=== PATIENT | female | born 1990 ===

== ENCOUNTER 2025-02-07 14:49 | Outpatient (REF) | payer MEDICAID, SELFPAY ==
--- OUTSIDE RECORDS SUMMARY | 2025-02-07 14:00 | XMS_ITS | Encounter Summary ---
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 Name Role Phone Unavailable Primary Care Provider Unavailabl e Reason for Visit * Reason Comments new patient Encounter Details Date Type Department Care Team ([facility] Contact Info) Description 02/07/2025 2:00 PM EST Office Visit [facility] [address] [place], [place] [phone] Sravanthi Quarles NP [address] [place] [address] Encounter to establish care with new provider (Primary Dx); Encounter for health-related screening; Screen for sexually transmitted diseases; Encounter for immunization Social History Tobacco Use Types Packs/Day Years Used Date Smoking Tobacco: Never Smokeless Tobacco: Never Tobacco Cessation:Counseling Given: Not Answered Alcohol Answer Date Recorded How often do you have a drink containing alcohol ? 0 02/07/2025 How many drinks containing a lcohol do you have on a typical day when you are drinking? 0 02/07/2025 How often do you have six or more drinks on one occasion? 0 02/07/2025 Depression Answer Date Recorded Patient Health Questionnaire-9 Score 9 02/07/2025 Patient Health Questionnaire-9 Score 9 02/07/2025 Last PHQ-9: Questionnaire Data Not on file 1 Housing Stability Answer Date Recorded What is your housing situation today? I do not have housing (Staying with others, in a hotel, in a senior care, living outside on the street, on a beach, in a car, or in a park 01/29/[address] you li ve. Do you have problems with any of the following? None of the above 01/29/2025 Food Insecurity Answer Date Recorded Within the past 12 months, y ou worried that your food would run out before you got money to buy more: Never True 01/29/2025 Within the past 12 months,th e food you bought just didn't last and you didn't have enough money to get more: Never True Transportation Answer Date Recorded In the past 12 months, has l ack of transportation kept you from medical appts, meetings, work or from getting things needed for daily living? No 01/29/2025 Utilities Answer Date Recorded In the past 12 months, has t he electric, gas, oil or water company threatened to shut off services in your home? No 01/29/2025 Depression Answer Date Recorded Patient Health Questionnaire-2 Score 1 02/07/2025 Internet Access Answer Date Recorded Internet Access Q1 Yes 01/29/2025 Internet Access Q2 Not on file 01/29/2025 Comments Unknown Sex and Gender Information Value Date Recorded Sex Assigned at Female 01/25/2025 8:40 AM EST Legal Sex Female 2:47 PM EST Gender Identity Female 01/25/2025 8:40 AM EST Sexual Orientation Straight 01/25/2025 8: 40 AM EST Travel History Travel Start Travel End [place] 01/08/2025 01/27/2025 documented as of this encounter Last Filed Vital Signs Vital Sign Reading Time Taken Comments Blood Pressure 100/70 02/07/2025 2:10 PM EST Pulse 100 02/07/2025 2:10 PM EST Temperature 37.4 C (99.4 F) 02/07/2025 2:10 PM EST Respiratory Rate 25 02/07/2025 2:10 PM EST Oxygen Saturation 99% 02/07/2025 2:10 PM EST Inhaled Oxygen Concentration - - Weight 56.7 kg (125 lb) 02/07/2025 2:10 PM EST Height 170.2 cm (5' 7 ) 02/07/2025 2:10 PM EST Body Mass Index 19.58 02/07/2025 2:10 PM EST documented in this encounter Functional Status * SBIRT - Drugs Question Answer Date of Assessment Author How many times in the past y ear have you used an illegal drug or used a prescription medication for non-medical reasons? 0 02/07/2025 2:11 PM EST Janine Savage MA Score 0 02/07/2025 2:11 PM EST Janine Guzman MA * Audit Alcohol Screening Question Answer Date of Assessment Author How many times in the past y ear have you had 5 or more (for men) or 4 or more (for women) drinks in a day? 0 02/07/2025 2:14 PM EST Sravanthi Waters NP Score 0 02/07/2025 2:14 PM EST Sravanthi Acosta NP How often do you have a drin k containing alcohol? 0 02/07/2025 2:14 PM EST Sravanthi Quarles N P How many drinks containing a lcohol do you have on a typical day when you are drinking? 0 02/07/2025 2:14 PM EST Sravanthi Quarles N P How often do you have six or more drinks on one occasion? 0 02/07/2025 2:14 PM EST Malina Quarles NP Audit-C Score 0 02/07/2025 2:14 PM EST Sravanthi Warner am, NP * Over the past 2 weeks, how often have you been bothered by any of the following problems? Question Answer Date of Assessment Author Patient Health Questionnaire -2 Score 1 02/07/2025 3:20 PM EST Janine Savage MA * Little interest or pleasure in doing things Answer Date of Assessment Author Several days 02/07/2025 3:20 PM EST Janine Savage MA * Feeling down, depressed, or hopeless Answer Date of Assessment Author Not at all 02/07/2025 3:20 PM EST Janine Savage MA * Trouble falling or staying asleep, or sleeping too much Answer Date of Assessment Author Nearly every day 02/07/2025 3:20 PM EST Janine Savage MA * Feeling tired or having little energy Answer Date of Assessment Author More than half the days 02/07/2025 3:20 PM EST Janine Cartagena MA * Poor appetite or overeating Answer Date of Assessment Author Several days 02/07/2025 3:20 PM EST Janine Savage MA * Feeling bad about yourself - or that you are a failure or have let yourself or your family down Answer Date of Assessment Author Not at all 02/07/2025 3:20 PM Janine Carlton MA * Trouble concentrating on things, such as reading the newspaper or watching television Answer Date of Assessment Author Several days 02/07/2025 3:20 PM Janine Carlton MA * Moving or speaking so slowly that other people could have noticed? Or the opposite - being so fidgety or restless that you have been moving around a lot more than usual. Answer Date of Assessment Author Several days 02/07/2025 3:20 PM Janine Carlton MA * Thoughts that you would be better off or hurting yourself in some way Answer Date of Assessment Author Not at all 02/07/2025 3:20 PM Janine Carlton MA * Patient Health Questionnaire-9 Score Answer Date of Assessment Author 9 02/07/2025 3:20 PM Janine Carlton MA * Over the last 2 weeks, how often have you been bothered by any of the following problems? Question Answer Date of Assessment Author Feeling nervous, anxious, or on edge 1 02/07/2025 3:19 PM Janine Carlton MA Not being able to stop or co ntrol worrying 0 02/07/2025 3:19 PM Janine Carlton MA Worrying too much about diff erent things 0 02/07/2025 3:19 PM Janine Carlton MA Trouble relaxing 1 02/07/2025 3:19 PM EST Janine Cartagena MA Being so restless that it is hard to sit still 0 02/07/2025 3:19 PM Janine Carlton MA Becoming easily annoyed or irritable 0 02/07/2025 3:19 PM Janine Carlton MA Feeling afraid as if somethi ng awful might happen 0 02/07/2025 3:19 PM Janine Carlton MA LADONNA-7 Total Score 2 02/07/2025 3:19 PM Janine Carlton MA * How difficult have these problems made it for you to do your work, take care of things at home, or get along with other people? Answer Date of Assessment Author Somewhat difficult 02/07/2025 3:20 PM Janine George MA documented as of this encounter Plan of Treatment Upcoming Encounters Date Type Department Care Team (Late st Contact Info) Description 03/23/2025 3:30 PM EST Office Visit [facility] [address] [place] [address] Sravanthi Quarles, MARIANNA [address] [place] [address] Scheduled Orders Name Type Priority Associated Diagnoses Orde r Schedule Iron And Total Iron Binding Capacity Lab Routine Encounter for health-related screening Expected: 02/07/2025, Expires: 02/07/2026 CBC auto differential Lab Routine Encounter for health-related screening Expected: 02/07/2025 (Approximate), Expires: 02/07/2026 TSH W/Reflex to FT4 Lab Routine Encounter for health-related screening Expected: 02/07/2025 (Approximate), Expires: 02/07/2026 Basic Metabolic Panel Lab Routine Encounter for health-related screening Expected: 02/07/2025 (Approximate), Expires: 02/07/2026 Lipid Panel, Standard Lab Routine Encounter for health-related screening Expected: 02/07/2025 (Approximate), Expires: 02/07/2026 Vitamin D, 25-Hydroxy, Total, Immunoassay Lab Routine Encounter for health-related screening Expected: 02/07/2025 (Approximate), Expires: 02/07/2026 Vitamin B12/Folate, Serum Panel Lab Routine Encounter for health-related screening Expected: 02/07/2025, Expires: 02/07/2026 Hepatitis C Antibody with Reflex to HCV, RNA, Quantitative, Real-Time PCR Lab Routine Screen for sexually transmitted diseases Expected: 02/07/2025 (Approximate), Expires: 02/07/2026 Bacterial Vaginosis, Yeast and Trich Microbiology Routine Screen for sexually transmitted diseases Expected: 02/07/2025 (Approximate), Expires: 02/07/2026 Chlamydia/N. Gonorrhoeae RNA, TMA, Vagina Microbiology Routine Screen for sexually transmitted diseases Ordered: 02/07/2025 HIV-1/2 Antigen and Antibodies, Fourth Generation, with Reflexes Lab Routine Screen for sexually transmitted diseases Expected: 02/07/2025 (Approximate), Expires: 02/07/2026 Hepatitis B surface antigen, EIA Lab Routine Screen for sexually transmitted diseases Expected: 02/07/2025 (Approximate), Expires: 02/07/2026 Hepatitis B Surface Antibody, Qualitative Lab Routine Screen for sexually transmitted diseases Expected: 02/07/2025 (Approximate), Expires: 02/07/2026 Hepatitis B Core Antibody, Total Lab Routine Screen for sexually transmitted diseases Expected: 02/07/2025 (Approximate), Expires: 02/07/2026 Syphilis Screen Lab Routine Screen for sexually transmitted diseases Expected: 02/07/2025 (Approximate), Expires: 02/07/2026 documented as of this encounter Visit Diagnoses Diagnosis Encounter to establish care with new provider- Primary Encounter for health-related screening Screen for sexually transmitted diseases Screening examination for venereal disease Encounter for immunization documented in this encounter Additional Health Concerns Assessment Noted Time PHQ-9 Depression Total Score: 9 02/08/20 25 3:20 PM EST documented as of this encounter
--- OUTSIDE RECORDS SUMMARY | 2025-02-08 08:09 | XMS_ITS | Encounter Summary ---
Author Organization [employer] Address [address] [facility] 7 [place] [address] Care Team Providers Care Real Estate Agent Name Role Phone Unavailable Primary Care Provider Unavailabl e Reason for Visit * Reason Onset Date Comments CHARTPREP 02/06/2025 Encounter Details Date Type Department Care Team ([facility] Contact Info) Description 02/06/2025 Telephone [facility] [address] [place] [address] Janine Savage MA CHARTPREP Social History Tobacco Use Types Packs/Day Years Used Date Smoking Tobacco: Never Assessed Alcohol Answer Date Recorded How often do [...] with others, in a hotel, in a correction, living outside on the street, on a [...] EST Travel History Travel Start Travel End [place] 01/08/2025 01/27/2025 documented as of this encounter Miscellaneous Notes * Telephone Encounter - Janine Savage MA - 02/06/2025 3:24 PM EST Chart Prep Labs: n/a Images: not applicable Referrals: not applicable Vaccines due: Covid, Flu, Tdap, Hep B, and HPV Screenings: pap smear,family planning,Hep C screening, Alcohol/substance use screening,HIV screening Overdue care gaps: SBIRT, PHQ-9, LADONNA-7, Disability screen, and Tobacco documented in this encounter Plan of Treatment Upcoming Encounters Date Type Department Care Team (Late st Contact Info) Description 03/23/2025 3:30 PM EST Office Visit [facility] [address] [place] [address] Sravanthi Quarles NP [address] [place] [address] documented as of this encounter Visit Diagnoses Not on filedocumented in this encounter
--- OUTSIDE RECORDS SUMMARY | 2025-02-08 08:09 | XMS_ITS | Clinical Summary ---
Author Organization [employer] Address [address] [place] [address] 7 [place] [address] Care Team Providers Care Personal Banking Assistant Name Role Phone Unavailable Primary Care Provider Unavailabl e Allergies No known active allergies Encounters Date Type Department Care Team Description 02/07/2025 2:00 PM EST Office Visit [facility] [address] [place] [phone] Sravanthi Quarles NP Encounter to establish care with new provider (Primary Dx); Encounter for health-related screening; Screen for sexually transmitted diseases; Encounter for immunization 02/07/2025 Travel 02/06/2025 Telephone [facility] [address] [place] [phone] Janine Savage MA CHARTPREP 01/29/2025 Patient Outreach [facility] [address] [place] [phone] Sravanthi Quarles NP Care Coordination (CH[facility] outreach for SDOH housing search-referral completed ) 01/29/2025 Patient Outreach [facility] [address] [place] [phone] Sravanthi Quarles NP Pre-visit Planning (SDOH Screening positive and Tobacco screening negative) 12/22/2024 Telephone [facility] [address] [place] [phone] Angelica Mccormick MD from Last 3 Months Immunizations Immunization Administration Dates Next Due Tdap 02/07/2025 Family History Medical History Relation Name Comments Depression Father Hypertension Father parkinson Father Arthritis Mother Diabetes Mother Relation Name Status Comments Father Mother Social History Tobacco Use Types Packs/Day Years [...] with others, in a hotel, in a fdc, living outside on the street, on a [...] EST Travel History Travel Start Travel End [place] 01/08/2025 01/27/2025 Last Filed Vital Signs Vital Sign Reading [...] Mass Index 19.58 02/07/2025 2:10 PM EST Plan of Treatment Upcoming Encounters Date Type Department Care Team (Late st Contact Info) Description 03/23/2025 3:30 PM EST Office Visit [facility] [address] [place] [address] Sravanthi Quarles NP [address] [place], [place] [phone] Health Maintenance Due Date Last Done Comments HIV Screening 1991 Family Planning (PISQ) 2006 HPV Vaccines (1 - 3-dose series) 2006 Hepatitis C Screening 2009 Hepatitis B Vaccines (1 of 3 - 19+ 3-dose series) 2010 Pap Smear 01/10/2012 Cervical Cancer Screening 2021 HPV/Cotest 2021 COVID-19 Vaccine (1 - 2024-2 6 season) 2024 Influenza Vaccine (#1) 2024 Depression Monitoring 08/07/2025 02/07/2025 , 02/07/2025 Alcohol/Substance Use Screening 02/07/2026 02/07/2025 Disability Screening 02/07/2026 02/07/2025 SDOH Screening 02/07/2026 02/07/2025 Tobacco Screening 02/07/2026 02/07/2025 DTaP/Tdap/Td Vaccines (2 - T d or Tdap) 02/07/2035 02/07/2025 Zoster Vaccines (1 of 2) 2041 RSV Patients and Patients Aged 60 years or older (1 - 1-dose 75+ series) 2066 HIB Vaccines Aged Out No longer eligi ble based on patient's age to complete this topic Hepatitis A Vaccines Aged Out No long er eligible based on patient's age to complete this topic IPV Vaccines Aged Out No longer eligi ble based on patient's age to complete this topic Meningococcal B Vaccine Aged Out No l onger eligible based on patient's age to complete this topic Meningococcal Vaccine Aged Out No miriam guera eligible based on patient's age to complete this topic Pneumococcal Vaccine: Pediatrics (0 to 5 Years) and At-Risk Patients (6 to 49) Years Aged Out No longer eligible b ased on patient's age to complete this topic RSV under 20 months Aged Out No longe r eligible based on patient's age to complete this topic Rotavirus Vaccines Aged Out No longer eligible based on patient's age to complete this topic [place] [address] [place] [address] C3
--- OUTSIDE RECORDS SUMMARY | 2025-02-08 08:09 | XMS_ITS | Encounter Summary ---
Author Organization [employer] Address [address] [facility] 7[address] [place] [address] Care Team Providers Care Sprinkler Installer Name Role Phone Unavailable Primary Care Provider Unavailabl e Encounter Details Date Type Department Care Team (Latest Contact Info) Description 02/07/2025 Travel Social History Tobacco Use Types Packs/Day Years Used Date Smoking Tobacco: Never Smokeless Tobacco: Never Alcohol Answer Date Recorded How often do [...] with others, in a hotel, in a nursing home, living outside on the street, on a [...] EST Travel History Travel Start Travel End [place] 01/08/2025 01/27/2025 documented as of this encounter Plan of Treatment Upcoming Encounters Date Type Department Care Team (Late st Contact Info) Description 03/23/2025 3:30 PM EST Office Visit [facility] [address] [place] [address] Sravanthi Quarles NP [address] [place] [address] documented as of this encounter Visit Diagnoses Not on filedocumented in this encounter Additional Health Concerns Assessment Noted Time PHQ-9 Depression Total Score: 9 02/08/20 25 3:20 PM EST documented as of this encounter
[2025-02-08 09:37] LABS: Bacterial Vaginosis PCR POSITIVE (Negative); Candida Group PCR NOT DETECTED (Not Detect); Candida glab krusei PCR NOT DETECTED (Not Detect); Trichomonas vaginalis PCR DETECTED (Not Detect)
[2025-02-08 10:08] LABS: CT PCR NOT DETECTED (Not Detect.); NG PCR NOT DETECTED (Not Detect.)
== END 2025-02-07 14:50 | disposition home or self-care (01) ==
LOC: HO.LNP 14:49
PROVIDERS: Visit Provider Nurse Practitioner
DX: Z20.2 Contact with and (suspected) exposure to infections with a predominantly sexual mode of transmission (principal)
CPT/HCPCS: 81515; 87491; 87591